=== PATIENT | male | born 1960 | race Caucasian/White ===

== ENCOUNTER 2019-10-17 16:13 | Inpatient (IN) | payer BC ==
[2019-10-17] MEDS ORDERED: DEXAMETHASONE INJ 10 MG/ML VIAL ONE (16:33)
[2019-10-17] MEDS ORDERED: DEXAMETHASONE INJ 4 MG/ML VIAL IV ONE (16:37)
[2019-10-17] MEDS ORDERED: cefTRIAXone SODIUM 1 GM in SODIUM CHL 0.9% 50ML MIN-BAG+ 50 ML IVPB ONE (16:37)
[2019-10-17] MEDS ORDERED: IPRATROPIUM/ALBUTEROL 3 ML VIAL NEB ONE ×2 (16:37→16:39)
--- NOTE | 2019-10-17 17:33 | RAD ---
EXAM DESCRIPTION: Chest,1 View CLINICAL HISTORY: 58 years Male covid COMPARISON: 10/17/2019 8:56 AM FINDINGS: Poor depth of inspiration. Cardiac enlargement. Bilateral infiltrates which appear to worsen when compared to previous study. Right effusion is not excluded. No pneumothorax. Study is limited by body habitus. IMPRESSION: Worsening bilateral infiltrates when compared to previous Question right effusion Electronically signed by: Lupe Patel MD 10/17/2019 5:32 PM CDT
[2019-10-17] MEDS ORDERED: FUROSEMIDE INJ 40 MG/4 ML VIAL IV ONE (18:54)
--- NOTE | 2019-10-17 20:10 | ED.PDOC ---
History of Present Illness - General Chief Complaint: Respiratory Problem Stated Complaint: SOB, cough, chills, body aches and diarrhea Time Seen by Provider: 10/17/19 16:37 Source: patient Exam Limitations: no limitations - History of Present Illness Initial Comments: The patient is a 58-year-old male presented emergency room after being transferred from [facility] for shortness of breath and hypoxia and being coronavirus positive. Upon initial consultation for transfer the patient was oxygenating around 89% on room air and 94% on 3 L nasal cannula. The time he arrived here he was requiring a nonrebreather. He apparently received a dose of azithromycin and Levaquin along with a liter of IV fluids there. The patient does not actually look all that short of breath. He does not appear to be in much distress. He did have his first toe amputated about 3 weeks ago on the left foot which does appear to be healing well. The patient is pleasant and c ooperative. He denies any significant history of chronic lung disease but does have chronic atrial fibrillation and is on Eliquis. The patient apparently had had a couple of days of mild diarrhea as well as some increased cough and increasing shortness of breath over the last couple of days. No syncope and no real chest pain. Cough is nonproductive. He denies having obstructive sleep apnea but has never had a sleep apnea test. The patient is morbidly obese and moderately mobile. He has also had some body aches. Timing/Duration: other - 2 days Severity: moderate Improving Factors: nothing Worsening Factors: nothing Associated Symptoms: malaise, shortness of breath Allergies/Adverse Reactions: Allergies Ceftriaxone [From Rocephin] Allergy (Verified 10/17/19 17:03) Lisinopril Allergy (Verified 10/17/19 17:03) Penicillins Allergy (Verified 10/17/19 17:03) Review of Systems - Review of Systems Constitutional: States: malaise EENTM: States: no symptoms reported Respiratory: States: cough, short of breath Cardiology: States: no symptoms reported Gastrointestinal/Abdominal: States: diarrhea Genitourinary: States: no symptoms reported Musculoskeletal: States: no symptoms reported - Generalized body aches Skin: States: no symptoms reported Neurological: States: other - Chronic neurological changes from diabetes Endocrine: States: no symptoms reported All other Systems: No Change from Baseline Past Medical History (General) - Patient Medical History Hx Stroke: No Hx Cardiac Disorders: Yes - Afib, stent Hx Congestive Heart Failure: Yes Hx Hypertension: No Hx Diabetes: Yes Hx Cancer: No Surgical History: other - Vaccination History Hx Influenza Vaccination: No Hx Pneumococcal Vaccination: No - Social History Hx Tobacco Use: No Hx Alcohol Use: No Hx Substance Use: No Hx Substance Use Treatment: No Hx Depression: No - Female History Patient is a Female of Child Bearing Age (10 -59 yrs old): No Patient : No Family Medical History - Family History Mother Family History: No Known Physical Exam - Physical Exam General Appearance: Alert, No apparent distress - Nonrebreather is in place Eye Exam: bilateral normal Ears, Nose, Throat: hearing grossly normal, normal pharynx Neck: non-tender, supple Respiratory: no respiratory distress, no accessory muscle use, rales - Mild scattered fine rails, other - Mild tachypnea Cardiovascular/Chest: no edema, tachycardia - Mild atrial fibrillation Peripheral Pulses: radial,right: 2+, radial,left: 2+ Gastrointestinal/Abdominal: non tender - Morbidly obese, soft Rectal Exam: deferred Back Exam: no CVA tenderness, no vertebral tenderness Extremity: normal range of motion, no pedal edema, normal capillary refill, other - Healing amputation of the first toe of left foot 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, alert, normal mood/affect, oriented x 3, other - Chronic sensory deficits to the extremities related to diabetes Skin Exam: normal color Comments: Vital Signs - 24 hr 10/17/19 10/17/19 10/17/19 16:15 16:57 17:00 Temperature 98.5 F Pulse Rate [ 103 H 103 H 111 H Pulse ox] Respiratory 28 H 28 H 26 H Rate Blood Pressure 155/81 148/78 [R arm] O2 Sat by Pulse 84 L 97 Oximetry 10/17/19 10/17/19 18:00 19:30 Temperature 99.5 F Pulse Rate [ 123 H 110 H Pulse ox] Respiratory 28 H 25 H Rate Blood Pressure 157/88 145/98 [R arm] O2 Sat by Pulse 97 96 Oximetry Progress - Progress Progress: 10/17/19 20:13 The patient is a 58-year-old male presented emergency room secondary to pneumonia due to coronavirus. The patient received a dose of azithromycin and Levaquin at the transferring facility. Upon arrival here he received 6 mg of IV Decadron. He also received 2 breathing treatments. He appears to be oxygenating well with a nonrebreather. He is mildly tachypneic and there is a mild increased work of breathing but he appears to be tolerating it well. He is already on Eliquis blood thinner. D-dimer was done here as a reference and a blood culture was done. The patient will be admitted for continued respiratory support. Although patient denies any history of sleep apnea, he does need to be monitored for this overnight as he is at a very high risk given his body habitus. He did receive 1 dose of IV Lasix here. The patient is in a higher risk group for coronavirus. ridge julia [id number] - Results/Orders Results/Orders: Laboratory Tests 10/17/19 10/17/19 17:15 17:15 D-Dimer, Quantitative 508.0 H POC Glucose 120 H See outside laboratory work from transfer for the rest of the labs. White blood cell count was 9000. He did test positive for coronavirus. Chest x-ray done here in comparison to the one earlier today shows increased infiltrates. Possible early development of an effusion. Departure - Departure Clinical Impression: Pneumonia due to 2019 novel coronavirus Disposition: Admit Patient Departure Forms: ED Discharge - Pt. Copy, Patient Portal Self Enrollment Decision To Admit - Decistion To Admit Decision to Admit Reason: Medical Nature Decision to Admit Date: 10/17/19 Decision to Admit Time: 20:15
--- NOTE | 2019-10-17 20:33 | HP ---
SUPERVISING PHYSICIAN: Jayme Atkins M.D. CHIEF COMPLAINT: Shortness of breath with coughing and chills. HISTORY OF PRESENT ILLNESS: This is a 58 year-old male patient that came to the Emergency Room after being transferred from [facility] for shortness of breath and hypoxia as well as being Savage virus positive. His O2 saturations were in the mid 80s on arrival to the Emergency Room and on 3 liters nasal cannula it went up to 94%. He was requiring a nonrebreather. At [facility] in [place] he received some azithromycin and Levaquin along with a liter of fluids. His blood work from [place] showed a WBC of 9.3 with hemoglobin 13.7, hematocrit 39. He did have a left shift on his differential. Urinalysis was unremarkable. Sed rate was 88. Group Strep A was negative. Influenza A and B was negative. BNP was 273, troponin was less than 0.05. Electrolytes showed sodium 131, potassium 2.6. He did receive some potassium supplementation in [place]. Chloride 92, BUN 27, creatinine 1.61. ABG showed pCO2 of 37.5, pO2 of 52.9, bicarb of 29.7, pH of 7.47. He was given some Lasix given the fact that his BNP was slightly elevated and he has atrial fibrillation, and he also continued on his Eliquis. He also got a dose of Decadron in the Emergency Room as well as nebulizer treatments. He was admitted to the hospital in stable condition. PAST MEDICAL HISTORY: 1. Atrial fibrillation on Eliquis with a previous stent and ablation. 2. Hypertension. 3. Diabetes mellitus type 2. 4. Gout. 5. Coronary artery disease. 6. Renal insufficiency with a baseline creatinine of about 1.5. PAST SURGICAL HISTORY: 1. Coronary stent. 2. Ablation. 3. Left great toe amputation about 3 weeks ago. OUTPATIENT MEDICATIONS: Per the EMR and awaiting verification. ALLERGIES: CEFTRIAXONE, LISINOPRIL AND PENICILLIN. FAMILY HISTORY: Noncontributory. SOCIAL HISTORY: He lives in [place]. He works at the group home. He is . He denies any tobacco, ETOH or illicit drug use. REVIEW OF SYSTEMS: GENERAL: Positive for fever, fatigue and malaise. Negative for weight changes. HEENT: Negative for sinus symptoms, ear pain, vision changes or sore throat. RESPIRATORY: Positive for coughing, wheezing and shortness of breath. CARDIAC: Negative for chest pain, palpitations or tachycardia. GASTROINTESTINAL: Positive for mild diarrhea. Negative for nausea, vomiting or constipation. GENITOURINARY: Negative for hematuria, dysuria or polyuria. MUSCULOSKELETAL: Positive for general body aches. SKIN: Negative for lesions or rashes. NEUROLOGIC: Negative for seizures or weakness. PHYSICAL EXAMINATION: VITAL SIGNS: Temperature 99.5, heart rate 110, blood pressure 145/98, respiratory rate 25, O2 saturation 96% on a nonrebreather. GENERAL: This is a 58 year-old male patient who is sitting up in his hospital bed. He is in mild respiratory distress. HEENT: Normocephalic, atraumatic. Pupils are equal and reactive. Oropharynx is clear. NECK: Supple without mass. RESPIRATORY: Diminished breath sounds throughout with a few scattered expiratory wheezes. He is mildly tachypneic. CARDIOVASCULAR: Tachycardic rate, irregular rhythm. Atrial fibrillation on the cardiac monitor technician. GASTROINTESTINAL: Abdomen is soft, nondistended, nontender. Bowel sounds are positive. RECTAL: Exam is deferred. BACK: Exam is deferred. EXTREMITIES: No cyanosis, clubbing or edema. He does have an amputation of the first toe of his left foot. NEUROLOGIC: Awake, alert and oriented times three. Cranial nerves II-XII are grossly intact as tested. SKIN: Warm and dry. LABORATORY: Labs and films are as per the History of Present Illness. ASSESSMENT: 1. Sepsis related to COVID pneumonia with a heart rate in the 100s, O2 saturation of 84, respiratory rate 28 and pO2 of 52.9. 2. History of atrial fibrillation with a stent on Eliquis. 3. Hypertension. 4. Diabetes mellitus type 2. 5. Renal insufficiency with a baseline creatinine of about 1.5. PLAN: The patient has been admitted to the hospital and placed in isolation for COVID pneumonia. He has been placed on the pneumonia protocol including the COVID protocol. Will continue him on azithromycin, Decadron and his Eliquis. I have repeated lab for in the morning, including the COVID lab as well as a chest x-ray. He has been placed on sliding scale insulin and will resume his home medications as soon as they are verified. He will have aggressive pulmonary hygiene, including his inhalers and incentive spirometry. Will continue to monitor closely and follow as needed. [facility][id number] [facility]
[2019-10-17] MEDS ORDERED: ONDANSETRON INJ 4 MG/2 ML VIAL IV PRN (20:53)
[2019-10-17] MEDS ORDERED: ACETAMINOPHEN 325 MG TAB PO PRN (20:53)
[2019-10-17] MEDS ORDERED: SODIUM CHLORIDE 0.9% (FLUSH) 10 ML SYG IV PRN (20:53)
[2019-10-17] MEDS ORDERED: GLUCAGON INJ 1 MG VIAL SUBCU PRN (21:31)
[2019-10-17] MEDS ORDERED: DEXTROSE 50% 25 GM/50 ML SYG IV PRN (21:31)
[2019-10-17] MEDS: APIXABAN 5 MG TAB PO SCH (22:19)
[2019-10-17] MEDS: SODIUM CHLORIDE 0.9% (FLUSH) 10 ML SYG IV SCH (22:20)
[2019-10-17] MEDS: IV SET AND CAP CHANGE INJ INJ SCH (22:20)
[2019-10-18] MEDS: INSULIN LISPRO 100 UNITS/ML PEN SUBCU SCH ×4 (07:18→21:01)
[2019-10-18] MEDS: DEXAMETHASONE INJ 10 MG/ML VIAL IV SCH (08:57)
[2019-10-18] MEDS: APIXABAN 5 MG TAB PO SCH ×2 (08:57→20:42)
[2019-10-18] MEDS: SODIUM CHLORIDE 0.9% (FLUSH) 10 ML SYG IV SCH ×2 (08:58→20:43)
[2019-10-18] MEDS ORDERED: POTASSIUM CHLORIDE 20 MEQ TAB PO ONE (09:28)
[2019-10-18] MEDS ORDERED: MAGNESIUM SULFATE PREMIX 2GM 2 GM in PREMIX BAG 1 BAG IVPB ONE (09:29)
[2019-10-18] MEDS ORDERED: ALLOPURINOL 300 MG TAB PO SCH (09:30)
[2019-10-18] MEDS: METOPROLOL SUCCINATE XL 25 MG TAB PO SCH (09:53)
[2019-10-18] MEDS: ALLOPURINOL 300 MG TAB PO SCH (11:26)
[2019-10-18] MEDS ORDERED: ALBUTEROL INHALER 64 PUFF/8GM INH PRN (13:15)
[2019-10-18] MEDS: ALBUTEROL INHALER 64 PUFF/8GM INH SCH ×2 (16:53→20:05)
[2019-10-18] MEDS: FUROSEMIDE 40 MG TAB PO SCH (16:56)
--- NOTE | 2019-10-18 19:57 | PN ---
SUPERVISING PHYSICIAN: Jayme Atkins M.D. DATE: 10/18/19 SUBJECTIVE: The patient is lying in bed. His shortness of breath has improved, although he still complains of shortness of breath with any exertion. Denies chest pain, nausea or vomiting. We discussed his plan of care and prognosis, and he understands and has no questions. OBJECTIVE: VITAL SIGNS: Temperature 97.9, heart rate 91, blood pressure 117/76, respiratory rate 20, O2 saturation 94% on high flow oxygen. RESPIRATORY: Diminished breath sounds throughout with a few scattered rhonchi, very mild. He is tachypneic with speaking. CARDIAC: Regular rate, irregular rhythm. Atrial fibrillation on the radiographer cardiac catheterization. NEUROLOGIC: He is awake, alert and oriented times three. LABORATORY: WBCs are 9,700 with hemoglobin 13.4, hematocrit 38.3. PTT is 70.8 with a fibrinogen of greater than 800, D-dimer is slightly improved at 415. Sodium 135, potassium 3.4, chloride 95, BUN 35, creatinine 1.58, magnesium 1.6, LDH 186, C reactive protein 31.2. Hemoglobin A1c is 6.2 with calcium 8.3. Preliminary blood cultures show no growth after 24 hours. All other labs and films have been reviewed via the EMR. ASSESSMENT: 1. Sepsis related to COVID pneumonia with a heart rate in the 100s, O2 saturation of 84, respiratory rate 28 and pO2 of 52.9. 2. History of atrial fibrillation with a stent on Eliquis. 3. Hypertension. 4. Diabetes mellitus type 2. 5. Renal insufficiency with a baseline creatinine of about 1.5. PLAN: We will continue present supportive care, including the COVID protocol as well as his antibiotics, IV Decadron and Eliquis. Repeat his lab and x-ray in the morning. Will continue with aggressive pulmonary hygiene. I have given him some potassium and magnesium supplementation. Will continue to monitor him closely and follow as needed. #[id number] [facility]
[2019-10-18] MEDS: ATORVASTATIN 20 MG TAB PO SCH (20:42)
[2019-10-18] MEDS: BIFIDOBACTERIUM INFANTIS 4 MG CAP PO SCH (20:42)
[2019-10-18] MEDS: amLODIPine BESYLATE 5 MG TAB PO SCH (20:42)
[2019-10-19] MEDS: ACETAMINOPHEN W/COD #3 TAB 1 EA TAB PO PRN ×3 (01:37→20:45)
[2019-10-19] MEDS ORDERED: AZITHROMYCIN IV 500 MG in SODIUM CHLORIDE 0.9% 250ML 250 ML IVPB ONE (08:44)
[2019-10-19] MEDS ORDERED: AZITHROMYCIN IV 500 MG VIAL IVPB ONE (08:59)
[2019-10-19] MEDS ORDERED: SODIUM CHLORIDE 0.9% 250ML 250 ML ONE (08:59)
[2019-10-19] MEDS: ALBUTEROL INHALER 64 PUFF/8GM INH SCH ×4 (09:00→20:40)
[2019-10-19] MEDS ORDERED: MAGNESIUM SULFATE PREMIX 2GM 2 GM in PREMIX BAG 1 BAG IVPB ONE (09:03)
[2019-10-19] MEDS ORDERED: POTASSIUM CHLORIDE 20 MEQ TAB PO ONE (09:04)
[2019-10-19] MEDS: INSULIN LISPRO 100 UNITS/ML PEN SUBCU SCH ×4 (09:04→20:28)
[2019-10-19] MEDS: DEXAMETHASONE INJ 10 MG/ML VIAL IV SCH (09:19)
[2019-10-19] MEDS: METOPROLOL SUCCINATE XL 25 MG TAB PO SCH (09:19)
[2019-10-19] MEDS: hydroCHLOROthiazide 25 MG TAB PO SCH (09:19)
[2019-10-19] MEDS: SODIUM CHLORIDE 0.9% (FLUSH) 10 ML SYG IV SCH ×2 (09:19→20:28)
[2019-10-19] MEDS: APIXABAN 5 MG TAB PO SCH ×2 (09:19→20:27)
[2019-10-19] MEDS: ASPIRIN (CHEWABLE) 81 MG TAB PO SCH (09:19)
[2019-10-19] MEDS: BIFIDOBACTERIUM INFANTIS 4 MG CAP PO SCH ×2 (09:19→20:27)
[2019-10-19] MEDS: ALLOPURINOL 300 MG TAB PO SCH (09:19)
[2019-10-19] MEDS: FUROSEMIDE 40 MG TAB PO SCH ×2 (09:19→16:53)
--- NOTE | 2019-10-19 10:01 | PN ---
SUPERVISING PHYSICIAN: Alvarado Sanchez MD DATE: 10/19/19 SUBJECTIVE: The patient states he is breathing about the same as he has been. He does not feel any more short of breath or any worse short of breath at this time. He has verbalized to the staff that he thought he should be on the ventilator. However, his oxygen saturations are mid-90s on high flow oxygen at 6 liters. OBJECTIVE: VITAL SIGNS: Blood pressure 121/70, heart rate 77, respiratory rate 24, temperature 98.3. However, he did spike a temperature of 100.1 about midnight. Oxygen saturation 96% on 6 liters high-flow cannula. GENERAL: Mr. Galeano is a 58-year-old male patient who is slightly tachypneic, but otherwise in no distress. NEUROLOGIC: Alert and oriented. LUNGS: Some bibasilar rales. CARDIOVASCULAR: Regular rate and rhythm. Normal S1, S2. ABDOMEN: Soft. Positive bowel sounds. GENITOURINARY: Deferred. EXTREMITIES: Lower extremities with no edema. LABORATORY: Normal white count, hemoglobin 12.9, platelet count 232. PTT 59.1, fibrinogen 829. D-dimer 216. Chemistry shows sodium 131, potassium 3.4, chloride 96, CO2 25, BUN 38, creatinine 1.43. Glucose 173, magnesium 1.7, calcium 8.3. ASSESSMENT: 1. Sepsis related to COVID-19 pneumonia. 2. History of atrial fibrillation with a stent on Eliquis. 3. Electrolyte imbalance. 4. Hypertension. 5. Diabetes mellitus, type 2. 6. Acute on chronic renal insufficiency. PLAN: To this point, we will continue current medications to include Decadron, Eliquis and azithromycin for COVID-19 treatment. We are going to replenish potassium and magnesium. We will repeat labs tomorrow. I will recheck his chest x-ray tomorrow as well. I did explain to the patient that he did not want to be on the ventilator if at all possible. He is maintaining at this point on high-flow oxygen. If his oxygen demand increases and work of breathing increases, that plan may change. However, at this time, he does not need to be on the ventilator. #[id number] [facility]
[2019-10-19] MEDS ORDERED: POTASSIUM CHLORIDE 20 MEQ TAB ONE (11:35)
[2019-10-19] MEDS: ATORVASTATIN 20 MG TAB PO SCH (20:27)
[2019-10-19] MEDS: amLODIPine BESYLATE 5 MG TAB PO SCH (20:27)
[2019-10-20] MEDS: INSULIN LISPRO 100 UNITS/ML PEN SUBCU SCH ×4 (07:45→21:34)
[2019-10-20] MEDS ORDERED: MAGNESIUM SULFATE PREMIX 2GM 2 GM in PREMIX BAG 1 BAG IVPB ONE (08:15)
[2019-10-20] MEDS: ALBUTEROL INHALER 64 PUFF/8GM INH SCH ×4 (09:00→20:10)
[2019-10-20] MEDS: DEXAMETHASONE INJ 10 MG/ML VIAL IV SCH (10:12)
[2019-10-20] MEDS: hydroCHLOROthiazide 25 MG TAB PO SCH (10:12)
[2019-10-20] MEDS: FUROSEMIDE 40 MG TAB PO SCH ×2 (10:12→17:25)
[2019-10-20] MEDS: ALLOPURINOL 300 MG TAB PO SCH (10:12)
[2019-10-20] MEDS: METOPROLOL SUCCINATE XL 25 MG TAB PO SCH (10:12)
[2019-10-20] MEDS: ASPIRIN (CHEWABLE) 81 MG TAB PO SCH (10:12)
[2019-10-20] MEDS: BIFIDOBACTERIUM INFANTIS 4 MG CAP PO SCH ×2 (10:12→21:29)
[2019-10-20] MEDS: APIXABAN 5 MG TAB PO SCH ×2 (10:12→21:30)
[2019-10-20] MEDS: SODIUM CHLORIDE 0.9% (FLUSH) 10 ML SYG IV SCH ×2 (10:14→21:29)
[2019-10-20] MEDS ORDERED: SODIUM CHLORIDE 0.65% NASAL SPRAY 45 ML BTTL BNAS PRN (10:37)
--- NOTE | 2019-10-20 10:47 | PN ---
SUPERVISING PHYSICIAN: Alvarado Sanchez MD DATE: 10/20/19 SUBJECTIVE: The patient states he is breathing fairly well today. He feels like he is breathing a little bit better than yesterday. He does complain of being hungry and states he does not think he is getting enough food. OBJECTIVE: VITAL SIGNS: Blood pressure 130/74, heart rate 81, respiratory rate 20, temperature 98.3. Oxygen saturation 93% on 3 liters via nasal cannula. GENERAL: Mr. Galeano is a 58-year-old male patient who is in no active distress currently. NEUROLOGIC: Alert and oriented. LUNGS: Some mild bibasilar rales and some diminished sounds, otherwise no wheezing. CARDIOVASCULAR: Regular rate and rhythm. Normal S1, S2. ABDOMEN: Soft. Positive bowel sounds. GENITOURINARY: Deferred. EXTREMITIES: Lower extremities with no edema. LABORATORY: White count 7.8, hematocrit 13.2, hematocrit 38.4, platelet count 256. ESR 85, D-dimer 391, fibrinogen 829, PTT 52.6, INR 1.24. Chemistry shows sodium 133, potassium 3.6, chloride 97, CO2 25, BUN 40, creatinine 1.41. Glucose 166, calcium 8.3, magnesium 1.7. CRP 13.7. ASSESSMENT: 1. Sepsis related to COVID-19 pneumonia. 2. History of atrial fibrillation on Eliquis. 3. Electrolyte imbalance. 4. Hypertension. 5. Diabetes mellitus, type 2. 6. Acute on chronic renal insufficiency. PLAN: His magnesium is still low, so we will give another 2 grams of magnesium today. We will continue the Eliquis, Decadron and azithromycin. Labs are pretty much unremarkable. Chest x-ray was done this morning and still waiting on the results of that, but it does not look all that different by my view. His oxygen demand has decreased to 3 liters from 6 liters. Clinically, he is improving. If we can get him down a little bit more on his oxygen, he can probably go home with oxygen towards the end of the week. We will try to get him qualified for that probably tomorrow. I actually discussed going home with oxygen with the patient and he was in agreement. #[id number] [facility]
[2019-10-20] MEDS ORDERED: FLUTICASONE PROP 0.05% NASAL 16 GM BTTL ONE (11:15)
[2019-10-20] MEDS: AZITHROMYCIN IV 250 MG in SODIUM CHLORIDE 0.9% 250ML 250 ML IVPB SCH (11:21)
[2019-10-20] MEDS: FLUTICASONE PROP 0.05% NASAL 16 GM BTTL BNAS SCH (11:21)
--- NOTE | 2019-10-20 20:11 | RAD ---
EXAM DESCRIPTION: Chest,1 View x-ray CLINICAL HISTORY: 58 years Male, pneumonia COMPARISON: 10/18/2019 IMPRESSION: The heart remains enlarged, with borderline central pulmonary vascular congestion. Severe bilateral airspace opacities are again demonstrated, greatest in the right lower lung. Opacities may have worsened since the prior exam, consistent with worsening pneumonia or less likely worsening pulmonary edema. Small bilateral pleural effusions. No pneumothorax. No acute osseous abnormality. Electronically signed by: Nate Freeman MD 10/20/2019 9:40 AM CDT
[2019-10-20] MEDS: amLODIPine BESYLATE 5 MG TAB PO SCH (21:29)
[2019-10-20] MEDS: ATORVASTATIN 20 MG TAB PO SCH (21:30)
[2019-10-20] MEDS: IV SET AND CAP CHANGE INJ INJ SCH (21:56)
[2019-10-21] MEDS: INSULIN LISPRO 100 UNITS/ML PEN SUBCU SCH ×5 (08:30→21:53)
[2019-10-21] MEDS: ALBUTEROL INHALER 64 PUFF/8GM INH SCH ×4 (08:55→20:30)
[2019-10-21] MEDS: METOPROLOL SUCCINATE XL 25 MG TAB PO SCH (09:27)
[2019-10-21] MEDS: BIFIDOBACTERIUM INFANTIS 4 MG CAP PO SCH ×2 (09:27→20:27)
[2019-10-21] MEDS: AZITHROMYCIN IV 250 MG in SODIUM CHLORIDE 0.9% 250ML 250 ML IVPB SCH (09:27)
[2019-10-21] MEDS: FUROSEMIDE 40 MG TAB PO SCH ×2 (09:27→17:01)
[2019-10-21] MEDS: ALLOPURINOL 300 MG TAB PO SCH (09:27)
[2019-10-21] MEDS: APIXABAN 5 MG TAB PO SCH ×2 (09:27→20:27)
[2019-10-21] MEDS: hydroCHLOROthiazide 25 MG TAB PO SCH (09:27)
[2019-10-21] MEDS: ASPIRIN (CHEWABLE) 81 MG TAB PO SCH (09:27)
[2019-10-21] MEDS: ACETAMINOPHEN W/COD #3 TAB 1 EA TAB PO PRN ×2 (09:27→20:52)
[2019-10-21] MEDS: SODIUM CHLORIDE 0.9% (FLUSH) 10 ML SYG IV SCH ×2 (09:28→20:28)
[2019-10-21] MEDS: DEXAMETHASONE INJ 10 MG/ML VIAL IV SCH (09:28)
[2019-10-21] MEDS: FLUTICASONE PROP 0.05% NASAL 16 GM BTTL BNAS SCH (09:28)
--- NOTE | 2019-10-21 09:58 | PN ---
SUPERVISING PHYSICIAN: Alvarado Sanchez MD DATE: 10/21/19 SUBJECTIVE: The patient is not feeling any significant shortness of breath this morning. He has gotten up out of bed and walked around the room. However, last night, he did have some drops in his O2 saturations and his O2 was increased. Respiratory therapist indicates he potentially has obstructive sleep apnea. The patient denies that. OBJECTIVE: VITAL SIGNS: Blood pressure 131/79, heart rate 77, respiratory rate 20, temperature 97.9. Oxygen saturation 92% on 8 liters via nasal cannula. GENERAL: Mr. Galeano is a 58-year-old male patient who is in no active distress currently. NEUROLOGIC: Alert and oriented. LUNGS: Some bibasilar rales and diminished sounds, otherwise no wheezing. CARDIOVASCULAR: Regular rate and rhythm. Normal S1, S2. ABDOMEN: Soft, obese. Positive bowel sounds. GENITOURINARY: Deferred. EXTREMITIES: Lower extremities with no significant edema. Pulses 2+. Capillary refill less than 2 seconds. ASSESSMENT: 1. COVID-19 pneumonia. 2. History of atrial fibrillation on Eliquis. 3. Hypertension. 4. Diabetes mellitus, type 2. 5. Acute on chronic renal insufficiency. PLAN: We will continue the Eliquis, Decadron and azithromycin. He did have an increase in his oxygen last night, but he did not have any shortness of breath. I suspect the patient does have sleep apnea and after discussion with him, he stated he does snore quite a bit. It would probably benefit him to have an outpatient sleep study, but at this point we cannot do that in the hospital right now. We will continue to decrease his oxygen as tolerated. He is wanting to know when he is going to go home. I told him that once he sustains on 2 to 3 liters, we can send him home with oxygen. The increase in his oxygen last night is somewhat of a setback, but we have already gone down to 6 liters from the 8 liters that he was on. I will repeat labs and x-rays tomorrow. [facility][id number] [facility]
[2019-10-21] MEDS: ATORVASTATIN 20 MG TAB PO SCH (20:27)
[2019-10-21] MEDS: amLODIPine BESYLATE 5 MG TAB PO SCH (20:27)
[2019-10-22] MEDS: INSULIN LISPRO 100 UNITS/ML PEN SUBCU SCH ×4 (07:15→20:36)
[2019-10-22] MEDS ORDERED: POTASSIUM CHLORIDE 20 MEQ TAB PO ONE (07:53)
--- NOTE | 2019-10-22 08:01 | RAD ---
EXAM DESCRIPTION: Chest,1 View CLINICAL HISTORY: 58 years Male, chest x-ray COMPARISON: Previous study October 20, 2019 TECHNIQUE: AP portable chest. FINDINGS: Heart size is large with increased pulmonary vascularity. Infiltrative changes are seen throughout the right lung and to a lesser extent in the left perihilar and left lingular regions. Infiltrates have progressed since the previous study. This could be pneumonia, ARDS or pulmonary edema from congestive failure. Clinical correlation recommended. No pulmonary mass or worrisome nodule. No pneumothorax or pleural effusion. Bones are unremarkable. IMPRESSION: Worsening bilateral pulmonary infiltrates. Electronically signed by: Stephen Mcghee MD 10/22/2019 7:59 AM CDT
[2019-10-22] MEDS: ALBUTEROL INHALER 64 PUFF/8GM INH SCH ×4 (08:30→20:40)
[2019-10-22] MEDS: AZITHROMYCIN IV 250 MG in SODIUM CHLORIDE 0.9% 250ML 250 ML IVPB SCH (08:58)
[2019-10-22] MEDS: hydroCHLOROthiazide 25 MG TAB PO SCH (09:02)
[2019-10-22] MEDS: DEXAMETHASONE INJ 10 MG/ML VIAL IV SCH (09:02)
[2019-10-22] MEDS: BIFIDOBACTERIUM INFANTIS 4 MG CAP PO SCH ×2 (09:02→20:26)
[2019-10-22] MEDS: FUROSEMIDE 40 MG TAB PO SCH ×2 (09:02→16:55)
[2019-10-22] MEDS: APIXABAN 5 MG TAB PO SCH ×2 (09:02→20:25)
[2019-10-22] MEDS: ASPIRIN (CHEWABLE) 81 MG TAB PO SCH (09:02)
[2019-10-22] MEDS: ALLOPURINOL 300 MG TAB PO SCH (09:02)
[2019-10-22] MEDS: METOPROLOL SUCCINATE XL 25 MG TAB PO SCH (09:03)
[2019-10-22] MEDS: FLUTICASONE PROP 0.05% NASAL 16 GM BTTL BNAS SCH (09:03)
[2019-10-22] MEDS: SODIUM CHLORIDE 0.9% (FLUSH) 10 ML SYG IV SCH ×2 (09:03→20:26)
[2019-10-22] MEDS ORDERED: MAGNESIUM SULFATE PREMIX 2GM 2 GM in PREMIX BAG 1 BAG IVPB ONE (09:32)
--- NOTE | 2019-10-22 15:49 | PN ---
SUPERVISING PHYSICIAN: Alvarado Sanchez MD DATE: 10/22/19 SUBJECTIVE: The patient is lying in bed. He has complaints of some shortness of breath with exertion but no chest pain, nausea or vomiting. OBJECTIVE: VITAL SIGNS: Temperature 98.4, heart rate 90, blood pressure 118/73, respiratory rate 22, oxygen saturation 92% on 3 liters high-flow cannula. RESPIRATORY: Diminished at the bases.. CARDIOVASCULAR: Regular rate and rhythm. NEURO: Awake, alert and oriented x3. LABORATORY: CBC unremarkable with exception he has a left shift on differential. ESR has slightly improved to 80. D-dimer went up to 716 with fibrinogen of 942 and PTT of 51. Sodium 132, potassium 3.4, chloride 94, BUN 44, creatinine 1.5. Calcium 8.5, magnesium 1.6. C-reactive protein slightly worsened to 16.2. Preliminary blood cultures show no growth after 4 days. Chest x-ray shows worsening bilateral pulmonary infiltrates. All other labs and films have been reviewed via the EMR. ASSESSMENT: 1. COVID-19 pneumonia. 2. History of atrial fibrillation on Eliquis. 3. Hypertension. 4. Diabetes mellitus, type 2. 5. Acute on chronic renal insufficiency. PLAN: We will continue present supportive care including his Decadron and azithromycin and Eliquis. I have repeated his labs for in the morning and hopefully those will be improved. He most likely will be on oxygen on discharge at least for some time. He also needs to make sure he gets a sleep study after he is discharged. His increase in oxygen from the previous day as well as his somewhat worsening lab studies is a setback but patient clinically is improved and hopefully he can still be discharged in the next 2 or 3 days. We will continue to monitor him and follow as needed. #[id number] [facility]
[2019-10-22] MEDS: amLODIPine BESYLATE 5 MG TAB PO SCH (20:25)
[2019-10-22] MEDS: ATORVASTATIN 20 MG TAB PO SCH (20:26)
[2019-10-23] MEDS: ACETAMINOPHEN W/COD #3 TAB 1 EA TAB PO PRN (04:12)
[2019-10-23] MEDS: INSULIN LISPRO 100 UNITS/ML PEN SUBCU SCH ×4 (07:48→21:13)
[2019-10-23] MEDS ORDERED: MAGNESIUM SULFATE PREMIX 2GM 2 GM in PREMIX BAG 1 BAG IVPB ONE (08:01)
[2019-10-23] MEDS: ALLOPURINOL 300 MG TAB PO SCH (08:34)
[2019-10-23] MEDS: METOPROLOL SUCCINATE XL 25 MG TAB PO SCH (08:34)
[2019-10-23] MEDS: DEXAMETHASONE INJ 10 MG/ML VIAL IV SCH (08:34)
[2019-10-23] MEDS: APIXABAN 5 MG TAB PO SCH ×2 (08:34→20:51)
[2019-10-23] MEDS: FUROSEMIDE 40 MG TAB PO SCH ×2 (08:34→17:29)
[2019-10-23] MEDS: BIFIDOBACTERIUM INFANTIS 4 MG CAP PO SCH ×2 (08:34→20:51)
[2019-10-23] MEDS: hydroCHLOROthiazide 25 MG TAB PO SCH (08:34)
[2019-10-23] MEDS: ASPIRIN (CHEWABLE) 81 MG TAB PO SCH (08:34)
[2019-10-23] MEDS: SODIUM CHLORIDE 0.9% (FLUSH) 10 ML SYG IV SCH ×2 (08:35→20:52)
[2019-10-23] MEDS: AZITHROMYCIN IV 250 MG in SODIUM CHLORIDE 0.9% 250ML 250 ML IVPB SCH (08:35)
[2019-10-23] MEDS: FLUTICASONE PROP 0.05% NASAL 16 GM BTTL BNAS SCH (08:35)
[2019-10-23] MEDS: ALBUTEROL INHALER 64 PUFF/8GM INH SCH ×4 (09:15→20:00)
[2019-10-23] MEDS: amLODIPine BESYLATE 5 MG TAB PO SCH (20:51)
[2019-10-23] MEDS: ATORVASTATIN 20 MG TAB PO SCH (20:51)
[2019-10-23] MEDS: IV SET AND CAP CHANGE INJ INJ SCH (21:33)
[2019-10-24] MEDS: INSULIN LISPRO 100 UNITS/ML PEN SUBCU SCH ×4 (07:30→21:00)
--- NOTE | 2019-10-24 08:37 | PN ---
SUPERVISING PHYSICIAN: Alvarado Sanchez MD DATE: 10/23/19 SUBJECTIVE: This is a 59 year-old male patient who is lying in his hospital bed. He is in no acute distress. She has complaints of some shortness of breath but otherwise no chest pain, nausea or vomiting. OBJECTIVE: VITAL SIGNS: Temperature 98.1, heart rate 81, blood pressure 115/70, respiratory rate 20, oxygen saturation 97%, although he has dropped as low at 89% on 5 liters high-flow oxygen. RESPIRATORY: Diminished throughout. CARDIOVASCULAR: Regular rate and rhythm. ABDOMEN: Soft, nondistended, non-tender. Bowel sounds are positive. NEURO: Awake, alert and oriented x3. LABORATORY: WBC 10.4 with hemoglobin of 14, hematocrit 40.2. He has a left shift on his differential. D-dimer has improved to 678, fibrinogen is 942. Blood sugars have run between 170 and 280, sodium 130, potassium 3.7, chloride 95, creatinine 1.43, magnesium 1.6. C-reactive protein is 16. LDH 189. All other labs and films have been reviewed via the EMR. ASSESSMENT: 1. COVID-19 pneumonia. 2. History of atrial fibrillation on Eliquis. 3. Hypertension. 4. Diabetes mellitus, type 2. 5. Acute on chronic renal insufficiency with baseline creatinine of 1.5. PLAN: We will continue present supportive care. He will need oxygen on discharge. I will continue his labs for tomorrow and I they continue to improve, hopefully he will be ready for discharge Saturday or Saturday. Otherwise, we will continue to monitor him and follow as needed. #[id number] [facility]
[2019-10-24] MEDS: AZITHROMYCIN IV 250 MG in SODIUM CHLORIDE 0.9% 250ML 250 ML IVPB SCH (08:41)
[2019-10-24] MEDS: ASPIRIN (CHEWABLE) 81 MG TAB PO SCH (08:42)
[2019-10-24] MEDS: BIFIDOBACTERIUM INFANTIS 4 MG CAP PO SCH ×2 (08:42→20:47)
[2019-10-24] MEDS: FUROSEMIDE 40 MG TAB PO SCH ×2 (08:42→18:02)
[2019-10-24] MEDS: APIXABAN 5 MG TAB PO SCH ×2 (08:42→20:47)
[2019-10-24] MEDS: METOPROLOL SUCCINATE XL 25 MG TAB PO SCH (08:42)
[2019-10-24] MEDS: hydroCHLOROthiazide 25 MG TAB PO SCH (08:42)
[2019-10-24] MEDS: DEXAMETHASONE INJ 10 MG/ML VIAL IV SCH (08:42)
[2019-10-24] MEDS: ALLOPURINOL 300 MG TAB PO SCH (08:42)
[2019-10-24] MEDS: SODIUM CHLORIDE 0.9% (FLUSH) 10 ML SYG IV SCH ×2 (08:43→20:47)
[2019-10-24] MEDS: FLUTICASONE PROP 0.05% NASAL 16 GM BTTL BNAS SCH (08:43)
--- NOTE | 2019-10-24 08:59 | RAD ---
EXAM DESCRIPTION: XR Chest, one view CLINICAL HISTORY: COVID. COMPARISON: October 22, 2019 FINDINGS: The heart is normal in size. The pulmonary vascularity is normal. Extensive bilateral interstitial infiltrates and haziness, greater on the right are again noted. No pneumothorax or pleural effusion is seen. The osseous structures appear unremarkable. IMPRESSION: Interstitial infiltrates greater on the right, compatible with clinical diagnosis of COVID pneumonia. Electronically signed by: Shirley Riddle MD 10/24/2019 8:57 AM CDT
[2019-10-24] MEDS: ALBUTEROL INHALER 64 PUFF/8GM INH SCH ×5 (09:00→20:45)
--- NOTE | 2019-10-24 14:27 | PN ---
SUPERVISING PHYSICIAN: Alvarado Sanchez MD DATE: 10/24/19 SUBJECTIVE: The patient is still having significant shortness of breath with any ambulation. He actually drops down into the 80s with ambulation on oxygen. This morning on examination, he just moved to a chair and was obviously significantly short of breath. He has not any complaints of chest pain, nausea, vomiting or diarrhea. OBJECTIVE: VITAL SIGNS: Temperature 98.1, heart rate 95, blood pressure 110/68, respiratory rate 20, oxygen saturation 89% on 3.5 liter nasal cannula. GENERAL: The patient looks to be a little winded, just moved from the bed to the chair. CHEST: Lung sounds continue to be diminished throughout. No obvious wheezing. HEART: Regular rate and rhythm. ABDOMEN: Obese, soft, non-tender. Bowel sounds are positive. EXTREMITIES: Without edema. NEURO: Alert and oriented x3. LABORATORY: Hemoglobin 14.1, hematocrit 40.3. Differential does show a left shift. Coagulation studies shows his fibrinogen is down to 871 but his D-dimer is back up to 743 which is the highest it's been since he has been in the hospital. Chemistries: sodium 130, blood sugar 239, BUN 64, creatinine 1.57, ALT elevated at 62 which is showing a trend down. C-reactive protein is showing trending down now at 13.3 compared to 31.2 on admission. RADIOLOGY: Chest x-ray this morning per radiology interpretation showed interstitial infiltrates greater on the right compatible with clinical diagnosis of Covid pneumonia. ASSESSMENT: 1. COVID-19 pneumonia. 2. Chronic atrial fibrillation on Eliquis with a controlled ventricular rate. 3. Hypertension. 4. Diabetes mellitus, type 2. 5. Acute on chronic renal insufficiency with baseline creatinine of 1.5. PLAN: We will continue with current plan of care at this point. He is still showing that his numbers are not trending down and he is significantly short of breath, maintaining 89% even with a nasal cannula in bed, minimal ambulation. He does have oxygen he takes at home but at this point, I do not believe he is ready to be discharged. Hopefully, he will continue to improve and we can get him out within the next 48 hours. Until then, we will continue to monitor and treat as needed. #[id number] [facility]
[2019-10-24] MEDS: amLODIPine BESYLATE 5 MG TAB PO SCH (20:47)
[2019-10-24] MEDS: ATORVASTATIN 20 MG TAB PO SCH (20:47)
[2019-10-24] MEDS ORDERED: ACETAMINOPHEN W/COD #3 TAB 1 EA TAB PO PRN (21:17)
[2019-10-25] MEDS: INSULIN LISPRO 100 UNITS/ML PEN SUBCU SCH ×4 (07:58→21:08)
[2019-10-25] MEDS: ALBUTEROL INHALER 64 PUFF/8GM INH SCH ×4 (08:30→20:10)
[2019-10-25] MEDS: METOPROLOL SUCCINATE XL 25 MG TAB PO SCH (08:33)
[2019-10-25] MEDS: DEXAMETHASONE INJ 10 MG/ML VIAL IV SCH (08:33)
[2019-10-25] MEDS: ASPIRIN (CHEWABLE) 81 MG TAB PO SCH (08:33)
[2019-10-25] MEDS: FUROSEMIDE 40 MG TAB PO SCH ×2 (08:33→16:48)
[2019-10-25] MEDS: AZITHROMYCIN IV 250 MG in SODIUM CHLORIDE 0.9% 250ML 250 ML IVPB SCH (08:33)
[2019-10-25] MEDS: hydroCHLOROthiazide 25 MG TAB PO SCH (08:33)
[2019-10-25] MEDS: guaiFENesin ER TAB 600 MG TAB PO SCH ×2 (08:33→20:41)
[2019-10-25] MEDS: ALLOPURINOL 300 MG TAB PO SCH (08:34)
[2019-10-25] MEDS: APIXABAN 5 MG TAB PO SCH ×2 (08:34→20:42)
[2019-10-25] MEDS: BIFIDOBACTERIUM INFANTIS 4 MG CAP PO SCH ×2 (08:34→20:41)
[2019-10-25] MEDS: SODIUM CHLORIDE 0.9% (FLUSH) 10 ML SYG IV SCH ×2 (09:00→20:42)
[2019-10-25] MEDS: FLUTICASONE PROP 0.05% NASAL 16 GM BTTL BNAS SCH (09:00)
[2019-10-25] MEDS: PANTOPRAZOLE SODIUM IV 40 MG VIAL IV SCH (14:05)
--- NOTE | 2019-10-25 14:29 | PN ---
SUPERVISING PHYSICIAN: Alvarado Sanchez MD DATE: 10/25/19 SUBJECTIVE: The patient this morning notes he feels worse than he has in a long time. He is showing saturations in the mid 90s when he is laying down on the right side with desaturation significant on the left beginning again when he ambulates into the low 80s. OBJECTIVE: VITAL SIGNS: Temperature 97.7, pulse 86, blood pressure 116/79, respiratory rate 22, oxygen saturation anywhere from 90 to 96% on 3.5 liter nasal cannula. GENERAL: The patient looks to be a little winded. CHEST: Lung sounds continue to be diminished throughout. HEART: Regular rate and rhythm. ABDOMEN: Obese, soft, non-tender. Bowel sounds are positive. EXTREMITIES: Without edema. NEURO: Alert and oriented x3. LABORATORY: Coagulation studies show his D-dimer went up to 1520 from 743 yesterday. Chemistries this morning show sodium 133 which is actually 136 for a corrected glucose of 283, potassium 3.5, BUN stable at 59, creatinine as well at 1.57. C-reactive protein is 7.7. RADIOLOGY: No additional studies. ASSESSMENT: 1. COVID-19 pneumonia. 2. Chronic atrial fibrillation on Eliquis with a controlled ventricular rate. 3. Hypertension. 4. Diabetes mellitus, type 2. 5. Acute on chronic renal insufficiency with baseline creatinine of 1.5. PLAN: I was hoping to be able to discharge him home today but given his D-dimer is doubled overnight and he is still maintaining oxygen saturations in the low 90s with ambulation, I want to at least keep him another 24 hours, Will continue current plan of care with no significant need for change in medication regimen other than will add some Mucinex to see if we can help mobilize some of his mucus. Until we can transition him to outpatient management, we will continue to monitor and treat as needed. [facility][id number] [facility]
[2019-10-25] MEDS: amLODIPine BESYLATE 5 MG TAB PO SCH (20:42)
[2019-10-25] MEDS: ATORVASTATIN 20 MG TAB PO SCH (20:42)
[2019-10-26] MEDS: INSULIN LISPRO 100 UNITS/ML PEN SUBCU SCH ×4 (08:23→21:56)
[2019-10-26] MEDS: ALBUTEROL INHALER 64 PUFF/8GM INH SCH ×4 (09:00→20:00)
[2019-10-26] MEDS: METOPROLOL SUCCINATE XL 25 MG TAB PO SCH (09:45)
[2019-10-26] MEDS: ALLOPURINOL 300 MG TAB PO SCH (09:45)
[2019-10-26] MEDS: hydroCHLOROthiazide 25 MG TAB PO SCH (09:45)
[2019-10-26] MEDS: BIFIDOBACTERIUM INFANTIS 4 MG CAP PO SCH ×2 (09:45→21:14)
[2019-10-26] MEDS: ASPIRIN (CHEWABLE) 81 MG TAB PO SCH (09:46)
[2019-10-26] MEDS: APIXABAN 5 MG TAB PO SCH ×2 (09:46→21:14)
[2019-10-26] MEDS: DEXAMETHASONE INJ 10 MG/ML VIAL IV SCH (09:46)
[2019-10-26] MEDS: FLUTICASONE PROP 0.05% NASAL 16 GM BTTL BNAS SCH (09:46)
[2019-10-26] MEDS: AZITHROMYCIN IV 250 MG in SODIUM CHLORIDE 0.9% 250ML 250 ML IVPB SCH (09:46)
[2019-10-26] MEDS: SODIUM CHLORIDE 0.9% (FLUSH) 10 ML SYG IV SCH ×2 (09:46→21:15)
[2019-10-26] MEDS: FUROSEMIDE 40 MG TAB PO SCH ×2 (09:46→17:28)
[2019-10-26] MEDS: guaiFENesin ER TAB 600 MG TAB PO SCH ×2 (09:46→21:14)
[2019-10-26] MEDS: PANTOPRAZOLE SODIUM IV 40 MG VIAL IV SCH (12:08)
--- NOTE | 2019-10-26 14:25 | PN ---
SUPERVISING PHYSICIAN: Justin De Leon MD DATE: 10/26/19 SUBJECTIVE: The patient is still significantly short of breath with any exertional effort. His labs are slowly trending down. He has not had any complaints of chest pain, nausea or vomiting. He remains afebrile. He is short of breath, at times even at rest, especially when he has been up to the bathroom and back. OBJECTIVE: VITAL SIGNS: Temperature 98.1, pulse 80, blood pressure 116/78, respiratory rate 24, oxygen saturation 98% on high-flow at 5 liters, desaturating down into the low 90s to high 80s even with high-flow nasal cannula with exertional effort. GENERAL: The patient is resting comfortably. He does not look to be in any distress. CHEST: Lung sounds are a little improved today. I do not hear any wheezing or rhonchi. Diminished towards the bases. No rales noted. HEART: Regular rate and rhythm. ABDOMEN: Obese, soft, nontender. Bowel sounds are positive. EXTREMITIES: Without edema. NEURO: Alert and oriented x3. LABORATORY: D-dimer is trending down It was 1502 previous and is down to 1230 today. Chemistries show sodium 128, but blood sugar was 218 correcting that to 133 sodium. Potassium is a little low at 3.5. BUN and creatinine are stable at 57 and 1.6 respectively. Calcium 8.4. ASSESSMENT: 1. COVID-19 pneumonia. 2. Chronic atrial fibrillation on Eliquis with a controlled ventricular rate. 3. Hypertension. 4. Diabetes mellitus, type 2. 5. Acute on chronic renal insufficiency with baseline creatinine of 1.5. PLAN: We will continue current plan of care at this point. I am hoping his D- dimer will show continuation of trending down tomorrow and he can go home. He does have oxygen arranged at home already. Hopefully with his labs improving we can discharge tomorrow. Until then, we will continue to monitor and treat as needed. [facility][id number] [facility]
[2019-10-26] MEDS: IV SET AND CAP CHANGE INJ INJ SCH (21:14)
[2019-10-26] MEDS: amLODIPine BESYLATE 5 MG TAB PO SCH (21:14)
[2019-10-26] MEDS: ATORVASTATIN 20 MG TAB PO SCH (21:14)
--- NOTE | 2019-10-27 07:14 | RAD ---
EXAM: XR Chest, 1 View CLINICAL HISTORY: COVID TECHNIQUE: Frontal view of the chest. COMPARISON: 10/24/2019. FINDINGS: Lungs: There is diffuse interstitial and airspace consolidation with increasing confluent disease throughout the right lung. Pleural space: Unremarkable. No pneumothorax. Heart: Unremarkable. No cardiomegaly. Mediastinum: Unremarkable. Bones/joints: Unremarkable. IMPRESSION: There is diffuse interstitial and airspace consolidation with increasing confluent disease throughout the right lung. Findings consistent with worsening covid pneumonia. Electronically signed by: Sara Ocampo MD 10/27/2019 7:13 AM CDT
[2019-10-27] MEDS: INSULIN LISPRO 100 UNITS/ML PEN SUBCU SCH ×4 (07:59→21:10)
[2019-10-27] MEDS: hydroCHLOROthiazide 25 MG TAB PO SCH (08:00)
[2019-10-27] MEDS: DEXAMETHASONE INJ 10 MG/ML VIAL IV SCH (08:00)
[2019-10-27] MEDS: METOPROLOL SUCCINATE XL 25 MG TAB PO SCH (08:00)
[2019-10-27] MEDS: guaiFENesin ER TAB 600 MG TAB PO SCH ×2 (08:01→20:23)
[2019-10-27] MEDS: BIFIDOBACTERIUM INFANTIS 4 MG CAP PO SCH ×2 (08:01→20:23)
[2019-10-27] MEDS: ALLOPURINOL 300 MG TAB PO SCH (08:01)
[2019-10-27] MEDS: ASPIRIN (CHEWABLE) 81 MG TAB PO SCH (08:01)
[2019-10-27] MEDS: FUROSEMIDE 40 MG TAB PO SCH ×2 (08:01→16:47)
[2019-10-27] MEDS: APIXABAN 5 MG TAB PO SCH ×2 (08:02→20:24)
[2019-10-27] MEDS: SODIUM CHLORIDE 0.9% (FLUSH) 10 ML SYG IV SCH ×2 (08:02→20:24)
[2019-10-27] MEDS: FLUTICASONE PROP 0.05% NASAL 16 GM BTTL BNAS SCH (08:03)
[2019-10-27] MEDS: AZITHROMYCIN IV 250 MG in SODIUM CHLORIDE 0.9% 250ML 250 ML IVPB SCH (08:03)
[2019-10-27] MEDS: ALBUTEROL INHALER 64 PUFF/8GM INH SCH ×4 (08:04→20:40)
[2019-10-27] MEDS ORDERED: POTASSIUM CHLORIDE 20 MEQ TAB PO ONE (08:18)
[2019-10-27] MEDS ORDERED: MAGNESIUM SULFATE PREMIX 2GM 2 GM in PREMIX BAG 1 BAG IVPB ONE (09:31)
[2019-10-27] MEDS ORDERED: MAGNESIUM SULFATE PREMIX 2GM 50 ML IVPB ONE (10:01)
[2019-10-27] MEDS: PANTOPRAZOLE SODIUM IV 40 MG VIAL IV SCH (13:42)
--- NOTE | 2019-10-27 17:31 | PN ---
SUPERVISING PHYSICIAN: Justin De Leon M.D. DATE: 10/27/19 SUBJECTIVE: The patient is sitting up in his chair in his room. He has some shortness of breath but mostly complains of coughing. Otherwise denies nausea, vomiting or chest pain. OBJECTIVE: VITAL SIGNS: Temperature 98.1, heart rate 84, blood pressure 109/75, respiratory rate 20, O2 sat 95% on 3 liters nasal cannula. RESPIRATORY: Diminished at the bases. CARDIAC: Regular rate and rhythm. NEUROLOGIC: He is awake, alert and oriented times three. LABORATORY: Fibrinogen is 790 and D-dimer is 616. Sodium 130, potassium 3.5, chloride 96, magnesium 1.7. Blood sugars have run between 217 and 276. C reactive protein is 6.4. Chest x-ray shows there is diffuse interstitial and airspace consolidation with increasing confluent disease throughout the right lung, findings consistent with worsening COVID pneumonia. All other labs and films have been reviewed via the EMR. ASSESSMENT: 1. COVID-19 pneumonia. 2. Chronic atrial fibrillation on Eliquis with a controlled ventricular rate. 3. Hypertension. 4. Diabetes mellitus, type 2. 5. Acute on chronic renal insufficiency with baseline creatinine of 1.5. 6. Obstructive sleep apnea. PLAN: We will continue present plan of care. His lab is slowly improving and other than the fibrinogen they are trending downward, and his x-ray is slightly worsened but clinically he looks much better. I have given him some magnesium and potassium supplementation. I will redo some of his COVID lab in the morning as well as his chest x-ray. If there is improvement and he continues to clinically be stable, we will discharge him home tomorrow or the next day. Will continue to monitor closely and follow as needed. #[id number] [facility]
[2019-10-27] MEDS: ATORVASTATIN 20 MG TAB PO SCH (20:23)
[2019-10-27] MEDS: amLODIPine BESYLATE 5 MG TAB PO SCH (20:24)
--- NOTE | 2019-10-28 07:16 | RAD ---
EXAM: XR Chest, 1 View CLINICAL HISTORY: covid TECHNIQUE: Frontal view of the chest. COMPARISON: 10/27/2019. FINDINGS: Lungs: Stable diffuse bilateral interstitial and airspace consolidation. Pleural space: Unremarkable. No pneumothorax. Heart: Stable cardiac enlargement. Mediastinum: Unremarkable. Bones/joints: Unremarkable. IMPRESSION: Stable abnormalities as above. Electronically signed by: Sara Ocampo MD 10/28/2019 7:15 AM CDT
[2019-10-28] MEDS: INSULIN LISPRO 100 UNITS/ML PEN SUBCU SCH (07:45)
[2019-10-28] MEDS: AZITHROMYCIN IV 250 MG in SODIUM CHLORIDE 0.9% 250ML 250 ML IVPB SCH (09:00)
[2019-10-28] MEDS: SODIUM CHLORIDE 0.9% (FLUSH) 10 ML SYG IV SCH (09:01)
[2019-10-28] MEDS: DEXAMETHASONE INJ 10 MG/ML VIAL IV SCH (09:01)
[2019-10-28] MEDS: guaiFENesin ER TAB 600 MG TAB PO SCH (09:03)
[2019-10-28] MEDS: ALLOPURINOL 300 MG TAB PO SCH (09:03)
[2019-10-28] MEDS: METOPROLOL SUCCINATE XL 25 MG TAB PO SCH (09:03)
[2019-10-28] MEDS: APIXABAN 5 MG TAB PO SCH (09:03)
[2019-10-28] MEDS: ASPIRIN (CHEWABLE) 81 MG TAB PO SCH (09:05)
[2019-10-28] MEDS: FLUTICASONE PROP 0.05% NASAL 16 GM BTTL BNAS SCH (09:05)
[2019-10-28] MEDS: FUROSEMIDE 40 MG TAB PO SCH (09:05)
[2019-10-28] MEDS: BIFIDOBACTERIUM INFANTIS 4 MG CAP PO SCH (09:05)
[2019-10-28] MEDS: hydroCHLOROthiazide 25 MG TAB PO SCH (09:05)
[2019-10-28] MEDS: ALBUTEROL INHALER 64 PUFF/8GM INH SCH (09:15)
[2019-10-28] MEDS ORDERED: POTASSIUM CHLORIDE 20 MEQ TAB PO ONE (09:31)
[2019-10-28 10:47] VITALS: O2SAT 95
[2019-10-28 14:09] VITALS: BP 123/68; TEMP 97.9
--- NOTE | 2019-10-28 14:36 | DS ---
SUPERVISING PHYSICIAN: Justin De Leon MD ADMISSION DIAGNOSIS: 1. Sepsis related to COVID pneumonia with a heart rate in the 100s, O2 saturation of 84, respiratory rate 28 and pO2 of 52.9. 2. History of atrial fibrillation with a stent, presently on Eliquis. 3. Hypertension. 4. Diabetes mellitus, type 2. 5. Renal insufficiency with a baseline creatinine of about 1.5. DISCHARGE DIAGNOSIS: 1. COVID-19 pneumonia. 2. Chronic atrial fibrillation on Eliquis with a controlled ventricular rate. 3. Hypertension. 4. Diabetes mellitus, type 2. 5. Acute on chronic renal insufficiency with baseline creatinine of 1.5. 6. Obstructive sleep apnea. HISTORY OF PRESENT ILLNESS: This is a 59-year-old male patient who came to the Emergency Room after being transferred from [facility] in [place] for shortness of breath and hypoxia as well as being COVID positive. His O2 saturations were in the mid 80s on arrival to the Emergency Room and went up to 94% on 3 liters nasal cannula. He then required a nonrebreather. In [place], he received some azithromycin and Levaquin along with a liter of fluids. His blood work from [place] showed a WBC of 9.3 with hemoglobin 13.7, hematocrit 39. He did have a left shift on his differential. Urinalysis was unremarkable. Sedrate was 88. Group Strep A was negative. Influenza A and B were negative. BNP was 273, troponin was less than 0.05. Electrolytes showed sodium 131, potassium 2.6. He did receive some potassium supplementation in [place]. Chloride 92, BUN 27, creatinine 1.61. ABG showed pCO2 of 37.5, pO2 of 52.9, bicarb of 29.7, pH of 7.47. He was also given some Lasix given the fact that his BNP was slightly elevated and he had atrial fibrillation. He was also continued on his Eliquis. He also got a dose of Decadron in our Emergency Room as well as multiple doses of albuterol. He was admitted to the hospital in stable condition. HOSPITAL COURSE: COVID-19 protocol was initiated as well as the pneumonia guidelines. He was continued on azithromycin. He was not put on Rocephin due to ceftriaxone allergy. He was continued on his Eliquis and continued on Decadron. He was placed on sliding scale insulin and his home medications were reviewed. He also had Protonix for ulcer prophylaxis. The patient was slow to improve over the next several days. His COVID labs would get better and then would worsen as well as his chest x-ray. He also had shortness of breath for quite some time although some of it may be complicated due to his most likely diagnosis of obstructive sleep apnea. His COVID labs were monitored closely. Today, all of his COVID labs have been trending downward for several days. His chest x-ray is stable. He will be discharged home today in stable condition. LABORATORY: WBCs remained stable between 7.8 and 10.8. Hemoglobin and hematocrit remained stable at 15.4 and 44.9. He continues to have a left shift on his differential although it is improving. His initial D-dimer was 508. It got as high as 1520. Today, it is 406. His fibrinogen initially was greater than 800. It went up as high as 942 and today is 692. He remained mildly hyponatremic after he was admitted. His sodium was 130 to 133. Potassium required supplementation several times, but was between 3.4 and 3.7. His creatinine remained fairly stable and near his baseline of 1.5 with his creatinine between 1.41 and 1.65. Magnesium required supplementation several times. It was 1.6, but today is 1.9. His calcium was stable between 8.4 and 8.7. C-reactive protein initially was 31.2 and improved daily. Today, it is 3.2. MICROBIOLOGY: His final blood cultures showed no growth. His final chest x-ray showed stable chest. DISCHARGE PLAN: The patient will be discharged home in stable condition. He is to resume his previous diabetic diet, increase his activity as tolerated. He is to followup with Dr. Quijano on 11/03/19 at 2:40 PM. In addition to his home medications including Eliquis, he is to continue with Decadron 4 mg x6 days, Align twice daily, Humalog insulin per sliding scale, potassium chloride 20 mEq daily, Guaifenesin 600 mg b.i.d. and azithromycin for 3 days. He is to return to the hospital or followup with Dr. Quijano for any problems or complications. DISCHARGE MEDICATIONS: 1. Metoprolol succinate. 2. Hydrochlorothiazide. 3. Furosemide. 4. Clonazepam. 5. Atorvastatin. 6. Aspirin. 7. Eliquis. 8. Amlodipine. 9. Allopurinol. 10. Acetaminophen with codeine. 11. Tylenol Arthritis. 12. Align. 13. Decadron. 14. Humalog insulin. 15. Potassium chloride. 16. Guaifenesin. 17. Azithromycin. [facility][id number] [facility]
== END 2019-10-28 13:05 | disposition home or self-care (01) | DRG 871 ==
LOC: ER 16:13 → OBSVTOIN 20:32 → MS 20:32
PROVIDERS: ADMIT Nurse Practitioner Acute Care; ATTEND Nurse Practitioner Acute Care
DX: A41.89 Other specified sepsis (principal); U07.1 COVID-19; J12.89 Other viral pneumonia; I48.20 Chronic atrial fibrillation, unspecified; E87.1 Hypo-osmolality and hyponatremia; I13.0 Hypertensive heart and chronic kidney disease with heart failure and stage 1 through stage 4 chronic kidney disease, or unspecified chronic kidney disease; R79.89 Other specified abnormal findings of blood chemistry; E83.42 Hypomagnesemia; E11.22 Type 2 diabetes mellitus with diabetic chronic kidney disease; N18.9 Chronic kidney disease, unspecified; I50.9 Heart failure, unspecified; G47.33 Obstructive sleep apnea (adult) (pediatric); N28.9 Disorder of kidney and ureter, unspecified; M10.9 Gout, unspecified; I25.10 Atherosclerotic heart disease of native coronary artery without angina pectoris; Z79.01 Long term (current) use of anticoagulants; Z95.5 Presence of coronary angioplasty implant and graft; Z88.1 Allergy status to other antibiotic agents; Z88.0 Allergy status to penicillin; Z88.8 Allergy status to other drugs, medicaments and biological substances; Z89.412 Acquired absence of left great toe; Z79.899 Other long term (current) drug therapy